=== PATIENT | male | born 1985 | race African-American/Black ===

== ENCOUNTER 2023-07-28 17:21 | Emergency (ER) | payer OTHER ==
[~2023-07-28] VITALS: Ht 172.7 cm; Wt 88.6 kg
[2023-07-28 17:22] VITALS: TEMP 98
[2023-07-28] MEDS ORDERED: CYCL-448 PO (20:41)
[2023-07-28] MEDS ORDERED: IBUP-1492 PO (20:41)
[2023-07-28 20:44] VITALS: BP 122/67; PULSE 64; RESP 16
[2023-07-28] MEDS ORDERED: KETOROLAC TROMETHAMINE 60 MG/2 ML VIAL IM ONE (20:45)
== END 2023-07-28 20:45 | disposition home or self-care (01) ==
LOC: EMS 17:28
DX: M54.50 Low back pain, unspecified (principal); V49.49XA Driver injured in collision with other motor vehicles in traffic accident, initial encounter; Y93.89 Activity, other specified; Y92.89 Other specified places as the place of occurrence of the external cause; Y99.8 Other external cause status
CPT/HCPCS: 99283; 96372; J1885